=== PATIENT | male | born 1995 | race Caucasian/White ===

== ENCOUNTER 2017-08-18 12:47 | Emergency (ER) | payer BC ==
[2017-08-18 13:11] VITALS: BP 125/61
--- NOTE | 2017-08-18 13:41 | UC ---
Ear Complaint HPI - HPI Summary HPI Summary: plugged right ear x days mildly annoying - History of Current Complaint Chief Complaint: UCEar Stated Complaint: EAR COMPLAINT Time Seen by Provider: 08/18/17 13:20 Hx Obtained From: Patient Onset/Duration: Sudden Onset, Lasting Days Severity Initially: Mild Severity Currently: Mild Pain Intensity: 1 Pain Scale Used: 0-10 Numeric Associated Signs/Symptoms: Positive: Hearing Loss - Allergies/Home Medications Allergies/Adverse Reactions: Allergies Allergy/AdvReac Type Severity Reaction Status Date / Time No Known Allergies Allergy Unverified 08/18/17 13:11 Home Medications: Home Medications NK [No Home Medications Reported] 08/18/17 [History Confirmed 08/18/17] PMH/Surg Hx/FS Hx/Imm Hx Previously Healthy: Yes - Surgical History Surgical History: None - Family History Known Family History: Negative: Cardiac Disease, Hypertension - Social History Alcohol Use: Occasionally Substance Use Type: None Smoking Status (MU): Never Smoked Tobacco Household Exposure Type: Cigarettes Review of Systems Constitutional: Negative Skin: Negative Eyes: Negative ENT: Ear Ache Respiratory: Negative Cardiovascular: Negative Gastrointestinal: Negative Genitourinary: Negative Motor: Negative Neurovascular: Negative Musculoskeletal: Negative Neurological: Negative Psychological: Negative Is Patient Immunocompromised?: No All Other Systems Reviewed And Are Negative: Yes Physical Exam Triage Information Reviewed: Yes Appearance: Well-Appearing, No Pain Distress, Well-Nourished Vital Signs: Initial Vital Signs Temp 99 F 08/18/17 13:07 Pulse 60 08/18/17 13:07 Resp 16 08/18/17 13:07 BP 125/61 08/18/17 13:07 Pulse Ox 100 08/18/17 13:07 Vital Signs Reviewed: Yes Eyes: Positive: Conjunctiva Clear ENT: Positive: TMs normal - left normal/right unable to vis due to cerumen, Uvula midline. Negative: Hearing grossly normal, Tonsillar swelling, Tonsillar exudate, Muffled voice, Hoarse voice Neck: Positive: Supple, Nontender Respiratory: Positive: Lungs clear, Normal breath sounds, No respiratory distress Cardiovascular: Positive: No Murmur, Pulses Normal Musculoskeletal: Positive: ROM Intact, No Edema Neurological: Positive: Alert Skin Exam: Normal Ear Complaint Course/Dx - Course Course Of Treatment: right TM normal post flush - Differential Dx/Diagnosis Provider Diagnoses: cerumen impaction right ear Discharge - Discharge Plan Condition: Improved Disposition: HOME Patient Education Materials: Cerumen Impaction (ED) Referrals: Kasie Arevalo MD [Primary Care Provider] - If Needed
== END 2017-08-18 13:45 | disposition home or self-care (01) ==
LOC: UCEAST 12:47
DX: H61.21 Impacted cerumen, right ear (principal)
CPT/HCPCS: 99202; G0463

== ENCOUNTER 2018-03-08 10:25 | Emergency (ER) | payer BC ==
[2018-03-08 10:48] VITALS: BP 111/79
--- NOTE | 2018-03-08 10:55 | UC ---
Headache HPI - HPI Summary HPI Summary: 22 yo male presents with headache and subjective fever for the last 3 days. 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 Since that time he has a mild diffuse headache which is relieved with tylenol. Also has a subjective fever - says he took his temp at home and it was 99F. Has no other symptoms. Denies chills, sore throat, cough, SOB, chest pain, abdominal pain, n/v/d/c, dysuria, back pain, weight loss/gain, night sweats. Pt says he has been bitten by ticks in the past and is worried about lyme disease. - History Of Current Complaint Chief Complaint: UCGeneralIllness Stated Complaint: HEADACHE,FEVER Time Seen by Provider: 03/08/18 10:55 Hx Obtained From: Patient Onset/Duration: Sudden Onset Initially Headache Was: Mild Currently Pain Is: Mild Pain Intensity: 3 Pain Scale Used: 0-10 Numeric - Allergies/Home Medications Allergies/Adverse Reactions: Allergies Allergy/AdvReac Type Severity Reaction Status Date / Time No Known Allergies Allergy Verified 03/08/18 10:48 Home Medications: Home Medications Acetaminophen [Tylenol] 1 tab PO TID PRN 03/08/18 [History Confirmed 03/08/18] PMH/Surg Hx/FS Hx/Imm Hx - Additional Past Medical History Additional PMH: None Previously Healthy: Yes - Surgical History Surgical History: None Surgery Procedure, Year, and Place: denies - Family History Known Family History: Negative: Cardiac Disease, Hypertension - Social History Occupation: Student Lives: With Family Alcohol Use: Occasionally Substance Use Type: None Smoking Status (MU): Never Smoked Tobacco Household Exposure Type: Cigarettes - Immunization History Most Recent Tetanus Shot: UTD Review of Systems Constitutional: Fever Skin: Negative Eyes: Negative ENT: Negative Respiratory: Negative Cardiovascular: Negative Gastrointestinal: Negative Genitourinary: Negative Neurovascular: Negative Musculoskeletal: Negative Neurological: Headache Psychological: Negative All Other Systems Reviewed And Are Negative: Yes Physical Exam - Summary Physical Exam Summary: GENERAL: NAD. WDWN. No pain distress. SKIN: No rashes, sores, ulcers, masses, lesions. HEENT: Head: AT/NC Eyes: PERRLA. EOM intact. Conjunctiva clear without inflammation or discharge. Ears: Hearing grossly normal. TMs intact, no bulging, erythema, or edema. Nose: Nasal mucosa pink and moist. NTTP maxillary and frontal sinus. Throat: Posterior oropharynx without exudates, erythema, or tonsillar enlargement. Uvula midline. NECK: Supple. Nontender. No lymphadenopathy. FROM. CHEST: CTAB. No r/r/w. No accessory muscle use. Breathing comfortably and in no distress. CV: RRR. Without m/r/g. Pulses intact. Brisk cap refill. ABDOMEN: Soft. NTTP. No distention or guarding. No organomegaly. No CVA tenderness. Bowel sounds present MSK: FROM and 5/5 strength throughout. No edema. Negative kernig and brudzinski. NEURO: Alert. CN II-XII grossly intact. PSYCH: Age appropriate behavior. Triage Information Reviewed: Yes Vital Signs: Initial Vital Signs Temp 97.9 F 03/08/18 10:46 Pulse 84 03/08/18 10:46 Resp 17 03/08/18 10:46 BP 111/79 03/08/18 10:46 Pulse Ox 100 03/08/18 10:46 Headache Course/Dx - Course Course Of Treatment: Exam is WNL today and he is afebrile. His headache is improved with tylenol. Will draw for CBC, CMP, and lyme. F/u if symptoms persist or worsen. - Differential Dx/Diagnosis Provider Diagnoses: Headache. Fever Discharge - Sign-Out/Discharge Documenting (check all that apply): Discharge/Admit/Transfer - Discharge Plan Condition: Stable Disposition: HOME Patient Education Materials: Lyme Disease (ED) Referrals: No Primary Care Phys,NOPCP [Primary Care Provider] - Additional Instructions: If you develop a fever, shortness of breath, chest pain, new or worsening symptoms - please call your PCP or go to the ED. We will call you with your lab results as they return - Billing Disposition and Condition Condition: STABLE Disposition: Home
[2018-03-08 15:52] LABS: ABS Basophils 0.1 10^3/ul (0-0.2); ABS Eosinophils 0 10^3/ul (0-0.6); ABS Lymphocytes 0.8 10^3/ul (1.0-4.8); ABS Monocytes 0.6 10^3/ul (0-0.8); ABS Neutrophils 1.9 10^3/ul (1.5-7.7); ABS Nucleated RBC 0 10^3/ul; Eosinophil % 0.3 % (0-6); Hematocrit 49 % (42-52); Hemoglobin 16.7 g/dl (14.0-18.0); Lymphocyte % 24.2 % (25-47); Mean Corpuscular HGB Conc 34 g/dl (31-36); Mean Corpuscular Hemoglobin 29 pg (27-31); Mean Corpuscular Volume 86 fL (80-94); Mean Platelet Volume 8.2 um3 (7.4-10.4); Nucleated Red Blood Cells % 0.8; Platelet Count 127 10^3/ul (150-450); Red Blood Count 5.69 10^6/ul (4.00-5.40); Red Cell Distribution Width 12 % (10.5-15); White Blood Count 3.4 10^3/ul (3.5-10.8)
[2018-03-08 16:06] LABS: EGFR Non-African American 75.7 (>60)
--- NOTE | 2018-03-09 14:16 | UC ---
- Progress Note Progress Note: PLS CALL PT. LABS SHOW SLIGHT ABNORMALITIES IN BLOOD COUNT AND METABOLIC PANEL. NEEDS TO BE REPEATED. FOLLOW-UP PCP. LYME SEROLOGY NOT YET BACK - GEORGINA DAVIS MD Discharge - Sign-Out/Discharge Documenting (check all that apply): Post-Discharge Follow Up - Discharge Plan Condition: Stable Disposition: HOME Patient Education Materials: Lyme Disease (ED) Referrals: No Primary Care Phys,NOPCP [Primary Care Provider] - Additional Instructions: If you develop a fever, shortness of breath, chest pain, new or worsening symptoms - please call your PCP or go to the ED. We will call you with your lab results as they return - Billing Disposition and Condition Condition: STABLE Disposition: Home
--- NOTE | 2018-03-10 10:58 | PN ---
Progress Note - Progress Note Date of Service: 03/10/18 Note: lyme neg. no further action required. please call and inform patient. <Monika Jackson - Last Filed: 03/10/18 10:57> Attestation Statement User Type: Provider - I was available for consult. The patient was not presented to me. -Mat <Jeanette Gutiérrez - Last Filed: 03/10/18 13:43>
== END 2018-03-08 11:10 | disposition home or self-care (01) ==
LOC: UCEAST 10:25
DX: R51 Headache (principal); R50.9 Fever, unspecified; R79.9 Abnormal finding of blood chemistry, unspecified
CPT/HCPCS: 36415; 80053; 85025; 86618; 99211; G0463